=== PATIENT | male | born 1930 | race Caucasian/White ===

== ENCOUNTER 2016-12-29 06:11 | Emergency (ER) | payer MEDICARE, BC ==
--- NOTE | 2016-12-29 07:10 | ED ---
Laceration/Wound HPI - HPI Summary HPI Summary: Patient is BIBA after being found on the floor at [facility]. The patient says he was trying to get out of bed and slipped. He suffered a laceration to his forehead and is unsure what he hit his head on. He denies LOC, neck pain, vomiting or amnesia. He was unable to get up without assistance. - History of Current Complaint Stated Complaint: FALL//HEAD LAC Hx Obtained From: Patient, EMS Mechanism of Injury: Sharp/Blunt Trauma Onset/Duration: Sudden Onset Aggravating: Movement Alleviating: Nothing Timing: Constant Onset Severity: Moderate Current Severity: Mild Pain Intensity: 0 Associated Signs & Symptoms: Pain - Additional Pertinent History Primary Care Physician: [id number] - Allergy/Home Medications Allergies/Adverse Reactions: Allergies Allergy/AdvReac Type Severity Reaction Status Date / Time Penicillins Allergy Severe SWELLING' Verified 07/01/12 15:06 PMH/Surg Hx/FS Hx/Imm Hx Endocrine/Hematology History: Reports: Hx Thyroid Disease - hypothyroid Cardiovascular History: Reports: Hx Hypertension Musculoskeletal History: Denies: Hx Osteoporosis - Surgical History Surgery Procedure, Year, and Place: APPENDECTOMY, RT.HIP, LT [facility] Infectious Disease History: No Infectious Disease History: Denies: Traveled Outside the [place] in Last 30 Days - Family History Known Family History: Positive: Unknown - Patient is a poor historian. - Social History Occupation: Retired Lives: [facility] Alcohol Use: None Substance Use Type: Reports: None Smoking Status (MU): Former Smoker Review of Systems Negative: Photophobia, Blurred Vision, Diplopia Negative: Myalgia Positive: Other - 4cm laceration to med forehead Negative: Weakness, Paresthesia, Numbness All Other Systems Reviewed And Are Negative: Yes Physical Exam Triage Information Reviewed: Yes Vital Signs On Initial Exam: Initial Vitals Temp Pulse Resp BP Pulse Ox 98 F 74 20 161/100 94 12/29/16 06:17 12/29/16 06:17 12/29/16 06:17 12/29/16 06:12/29/16 06:17 Vital Signs Reviewed: Yes Appearance: Positive: Well-Appearing, No Pain Distress, Well-Nourished Skin: Positive: Warm, Skin Color Reflects Adequate Perfusion, Dry, Tender - 4 cm laceration to mid forehead, Soft Head/Face: Positive: Normal Head/Face Inspection Eyes: Positive: EOMI, FREDRICK, Conjunctiva Clear ENT: Positive: Hearing grossly normal, Pharynx normal, TMs normal Neck: Positive: Supple, Nontender Respiratory/Lung Sounds: Positive: Clear to Auscultation, Breath Sounds Present Cardiovascular: Positive: RRR Abdomen Description: Positive: Nontender, Soft Bowel Sounds: Positive: Present Musculoskeletal: Negative: Edema Left, Edema Right Neurological: Positive: Sensory/Motor Intact, Alert, Oriented to Person Place, Time, CN Intact II-III, NV Bundle Intact Distally Psychiatric: Positive: Affect/Mood Appropriate AVPU Assessment: Alert Procedures - Laceration/Wound Repair 1 Location: face - forehead Description: Linear Anesthesia: Local, 2.0%, Lido, Epi Length, Depth and Shape: 4 cm long, 4mm deep, 3mm wide Betadine Prep?: No Irrigated w/ Saline (ccs): 400 Laceration/Wound Explored: clean Closure: Single Layer Debridement: minimal Suture Type: Nylon - 5.0 Number of Sutures: 10 Layer Closure?: No Sterile Dressing Applied?: Yes Diagnostics - Vital Signs Vital Signs Temp Pulse Resp BP Pulse Ox 12/29/16 06:17 98 F 74 20 161/100 94 - Laboratory Lab Statement: Any lab studies that have been ordered have been reviewed, and results considered in the medical decision making process. - CT No standard instances CT Interpretation: No Acute Changes CT Interpretation Completed By: Radiologist Laceration Repair Course/Dx - Differential Dx Differental Diagnoses: Abrasion, Avulsion, Cellulitis, Dehiscence, Hematoma, Laceration, Puncture Wound - Clinical Impression Provider Diagnoses: Head injury, Contusion, Laceration Discharge - Discharge Plan Condition: Stable Disposition: HOME Patient Education Materials: Head Injury (ED), Facial Laceration (ED) Referrals: Pattie Birmingham MD [Primary Care Provider] - Additional Instructions: Keep your dressing clean, dry and in place for the next 24 hours. You may then remove and shower. Pat dry and cover with a clean, dry band-aid if you are going to be in a "dirty" environment, otherwise it can remain open to air. Do not soak the wound in any body of water until the sutures are removed. Elevate the head above your heart and use Tylenol for pain to reduce pain and swelling. Follow-up with your primary care provider or return to the emergency department in 5 days for suture removal. Return to the emergency department sooner if your symptoms worsen.
--- NOTE | 2016-12-29 07:56 | RAD ---
INDICATION: Intracranial injury COMPARISON: MRI brain May 12, 2011 TECHNIQUE: Noncontrast axial source images were acquired from the skull base to the vertex. FINDINGS: Ventricles/sulci: The ventricles are unchanged in size and are out of proportion to the remaining CSF spaces raising the possibility of NPH. The sulci remain prominent.. Brain parenchyma: There is periventricular and subcortical white matter change compatible with chronic ischemia. Intracranial hemorrhage:None. Extra-axial spaces: There are no abnormal extra axial fluid collections or evidence of extra-axial mass. Calvarium: There is no calvarial fracture or other calvarial abnormality. Scalp: There is left frontal scalp hematoma. Paranasal sinuses/mastoid: The paranasal sinuses and mastoid air cells are clear. Other: None. IMPRESSION: No acute intracranial findings. Persistent prominence of the ventricular system. Chronic underlying microvascular ischemic change. Left frontal scalp hematoma
[2016-12-29 08:36] VITALS: BP 152/85
== END 2016-12-29 08:35 | disposition home or self-care (01) ==
LOC: ED 06:11
DX: S09.90XA Unspecified injury of head, initial encounter (principal); S01.81XA Laceration without foreign body of other part of head, initial encounter; S00.93XA Contusion of unspecified part of head, initial encounter; W06.XXXA Fall from bed, initial encounter; Y93.9 Activity, unspecified; Y92.9 Unspecified place or not applicable
CPT/HCPCS: 12013; 70450; 99282